=== PATIENT | male | born 1960 | race Caucasian/White ===

== ENCOUNTER 2019-09-23 17:27 | Inpatient (IN) | payer MEDICARE ==
[~2019-09-23] VITALS: Ht 175.3 cm; Wt 83.1 kg
[2019-09-23] MEDS ORDERED: LISINOPRIL20 MG PO (17:33)
[2019-09-23] MEDS ORDERED: ALDACTONE100 MG PO (17:34)
[2019-09-23] MEDS ORDERED: FLOMAX0.4 MG PO (17:34)
[2019-09-23] MEDS ORDERED: DILAUDID4 MG PO (17:34)
[2019-09-23] MEDS ORDERED: KLONOPIN1 MG PO (17:35)
[2019-09-23] MEDS ORDERED: LAMICTAL100 MG PO (17:35)
[2019-09-23] MEDS ORDERED: OXYBUTYNIN CHLOR5 M1 PO (17:35)
[2019-09-23 18:14] LABS: BASOPHILS 0.1 % (0-2); EOSINOPHILS 0 % (0-7); HEMATOCRIT 21.6 % (42.0-54.0); IMMATURE GRANULOCYTES 0.4 % (0-5); LYMPHOCYTES 14.8 % (15-50); MCH 23.9 pg (26.0-34.0); MCV 77.1 fL (80.0-100.0); MEAN PLATELET VOLUME 8.5 fL (7.4-10.4); MONOCYTES 11.2 % (2-11); NEUTROPHILS 73.5 % (40-80); PLATELET COUNT 452 10x3/uL (130-400); WBC 10.2 10x3/uL (4.8-10.8)
[2019-09-23 18:18] LABS: CALC OSMOLALITY 269 mosm/kg (275-300); CALCIUM 8.3 mg/dL (8.5-10.1); CARBON DIOXIDE 28.4 mmol/L (21.0-32.0); CHLORIDE - SERUM 96 mmol/L (98-107); CREATININE - SERUM 0.8 mg/dL (0.6-1.3); GLUCOSE 111 mg/dL (74-106); POTASSIUM - SERUM 4.5 mmol/L (3.5-5.1); PROTIME 13.1 SECONDS (11.6-15.0); SODIUM 131 mmol/L (136-145); UREA NITROGEN 30 mg/dL (7-18); eGFR NON AFRICAN AMERICAN > 90 mL/min (90-120)
[2019-09-23 18:24] LABS: ALBUMIN 2.8 g/dL (3.4-5.0); ALKALINE PHOSPHATASE 35 U/L (30-120); ALT (SGPT) 52 U/L (10-68); BILIRUBIN - TOTAL 0.18 mg/dL (0.2-1.3); PROTEIN - SERUM 6.5 g/dL (6.4-8.2)
[2019-09-23 18:26] LABS: HEMOGLOBIN 6.7 g/dL (13.5-17.5)
[2019-09-23 19:37] LABS: HEMATOCRIT 20.4 % (42.0-54.0)
[2019-09-23 19:38] LABS: HEMOGLOBIN 6.3 g/dL (13.5-17.5)
[2019-09-23 19:45] LABS: % SATURATION 3 % (15-55); IRON 11 ug/dl (35-150); TOTAL IRON BIND CAPACITY 337 ug/dl (260-445); UNSAT IRON BIND CAPACITY 326 ug/dl (150-375)
[2019-09-23 19:49] VITALS: BP 108/52
--- NOTE | 2019-09-23 20:14 | NUR ---
PT ARRIVED FROM ER VIA STREATCHER A&OX4 IN STABLE CONDITION.
[2019-09-23 20:38] LABS: CREATINE KINASE 926 UL (21-232); TROPONIN-I < 0.017 ng/mL (0.000-0.060)
[2019-09-23] MEDS ORDERED: KLONOPIN0.5 MG PO (20:50)
[2019-09-23] MEDS ORDERED: FERROUS SULFAT325 MG PO (20:54)
[2019-09-23 21:00] VITALS: BP 120/74
--- NOTE | 2019-09-23 21:09 | NUR ---
PAGED VOISE TO NOTIFY OF CONSULT
--- NOTE | 2019-09-23 21:37 | NUR ---
INSERTED DANIELS CATHETOR WITH NO ISSUE. PT TOLERATED WELL AND VOICE"I FEEL MUCH BETTER I REALLY HAD TO PEE". YELLOW URINE WAS OBSERVED IN THE TUBE. HUNG ON BED BELOW BLADDER.
--- NOTE | 2019-09-23 21:44 | NUR ---
CALLED BACK. NOTIFIED OF CONSULT OF PT AND INFORMED HIM OF PT CONDITION. HE GAVE T.O TO D/C ZOFRAN CONTINOUS AND HAVE ZOFRAN 4MG IV Q6H PRN FOR N/V. T.O READ BACK CORRECT. HE ALSO VERBALIZED TO KEEP PT NPO OVER NIGHT AND TO GET CONSENT TO HAVE AN UPPER EGD WITH TIVA IN THE MORNING. T.O READ BACK CORRECT. ALSO SAID TO NOTIFY IF VS CHANGE BUT THAT HE WOULD SEE THE PT IN THE MORNING.
--- NOTE | 2019-09-23 21:55 | NUR ---
TALKED WITH PT ASKED "CAN I GET MY KLONIPINE, I TAKE 0.5MG TWICE A DAY AND 1MG ONCE AT NIGHT BECASUE MY LEGS SHAKE REAL BAD AND HURT". GAVE T.O TO RESTART THIS HOME MED HE TAKES IT AT HOME. T.O KLONIPINE 0.5MG PO BID AND 1MG PO HS. T.O READ BACK CORRECT.
--- NOTE | 2019-09-23 21:58 | NUR ---
JUST STARTED SECOND UNIT OF BLOOD PER ORDER. PT VSS. PT VOICES NO NEEDS OR PAIN AT THIS TIME. VOICES"MY LEGS ARE FEELING BETTER". HE HAS A WARM BLANKET BC HE STATES HE IS COLD. TEMP IS 97.8F AXILLA. BED IS LOW,SIDE RAILSX2, CALL LIHT WITHIN REACH. WILL CONTINUE TO [facility]
[2019-09-23 22:00] VITALS: BP 100/67
[2019-09-23 23:00] VITALS: BP 123/76
--- NOTE | 2019-09-23 23:38 | NUR ---
SECOND UNIT OF BLOOD JUST FINSHED. PT IS RESTING WITH EYES CLOSED. VSS. TEMP IS 97.3F AXILLIA. BED IS LOW,SIDE RIALSX2,CALL LIGHT WITHIN REACH. WILL CONITNUE TO MONITOR
--- NOTE | 2019-09-23 23:55 | NUR ---
STARTED FIRST BAG OF FFP AT THIS TIME. PT IS RESTING WITH EYES CLOSED. VSS. NO NEEDS VOICED. BED IS LOW,SIDE RAILSX2,CALL LIGHT WITHIN REACH.WILL CONTINUE TO MONITOR
[2019-09-24] VITALS (24 sets, daily range): BP systolic 91–120; BP diastolic 52–68; Ht 175.3 cm; Wt 83.1 kg
[2019-09-24 01:03] LABS: BILIRUBIN NEGATIVE (NEGATIVE); GLUCOSE NEGATIVE (NEGATIVE); KETONE NEGATIVE (NEGATIVE); NITRITE NEGATIVE (NEGATIVE); UROBILINOGEN NORMAL (NORMAL)
--- NOTE | 2019-09-24 01:30 | NUR ---
GOT A CALL FROM LAB STATING SECOND BAG OF FFP IS READY.
--- NOTE | 2019-09-24 01:49 | NUR ---
STARTED FIRST BAG OF FFP PER ORDER. PT VITALS ARE STABLE. PT IS RESTING WITH EYES CLOSED. BED IS LOW,SIDE RAISLX2,CALL LIGHT WTIHIN REACH. WILL CONTINUE TO MONITOR
[2019-09-24 02:03] LABS: CKMB 13.3 U/L (0.0-3.6)
[2019-09-24 02:04] LABS: CREATINE KINASE 942 UL (21-232); TROPONIN-I < 0.017 ng/mL (0.000-0.060)
--- NOTE | 2019-09-24 03:57 | NUR ---
HANGING 3 FFP AT THIS TIME. PT IS RESTING IN BED WITH EYES CLOSED. VSS. WILL PERFORM RE-ASSESSMENT AND DOCUMENT. NO NEEDS WERE VOICED. BED IS LOW,SIDE RAILSX3,CALL LIGHT WTIHIN REACH. WILL CONTINUE TO MONITOR
--- NOTE | 2019-09-24 05:22 | NUR ---
LAST BAG OF FFP IS DONE. PT VITALS ARE STABLE. GAVE CHG BATH PER PROTOCOL FOR ICU. PT TOLERATED WELL. PERFORMED DANIELS CATHETOR CARE. AND PROVIDED ORAL CARE BECAUSE PT VOICES "MY MOUTH IS SO TRY". USING GLYCERIN SWABS. PT VOICED"THAT FEELS MUCH BETTER AFTER". BED IS LOW,SIDE RAILSX2,CALL LIGTH WITHIN REACH.WILL CONTINUE TO MOINTOR
--- NOTE | 2019-09-24 06:00 | NUR ---
PT IS AWAKE A&OX4. VSS. WENT OVER CONSENT FORMS FOR UPPER EGD C TIVA TODAY. PT VERBALIZED UNDERSTANDING AND SIGNS CONSENT FORMS. HE VOICES NO NEEDS OR C/O AT THIS TIME. HE POSITIONS HIS SELF INDEPENDENTLY. BED IS LOW,SIDE RAISLX2,CALL LIGHT WITHIN REACH. WILL CONTINUE TO MONITOR
[2019-09-24 06:52] LABS: BASOPHILS 0.1 % (0-2); EOSINOPHILS 0 % (0-7); HEMATOCRIT 22.4 % (42.0-54.0); IMMATURE GRANULOCYTES 0.4 % (0-5); LYMPHOCYTES 14.1 % (15-50); MCH 25.4 pg (26.0-34.0); MCHC 32.6 g/dL (31.0-37.0); MEAN PLATELET VOLUME 8.4 fL (7.4-10.4); MONOCYTES 9.9 % (2-11); NEUTROPHILS 75.5 % (40-80); RBC 2.87 10x6/uL (4.20-6.10); RDW 16.5 % (11.5-14.5); WBC 7.7 10x3/uL (4.8-10.8)
--- NOTE | 2019-09-24 07:00 | NUR ---
REPORT RECEIVED. ASSESSMENT COMPLETE PER FLOW SHEET. VSS. PT RESTING COMFORTABLY DENIES NEEDS WILL CONTINUE TO MONITOR
[2019-09-24 07:02] LABS: HEMOGLOBIN 7.3 g/dL (13.5-17.5); PLATELET COUNT 316 10x3/uL (130-400)
[2019-09-24 07:24] LABS: ALBUMIN 2.6 g/dL (3.4-5.0); ALKALINE PHOSPHATASE 36 U/L (30-120); ALT (SGPT) 45 U/L (10-68); BILIRUBIN - TOTAL 0.58 mg/dL (0.2-1.3); CALCIUM 7.9 mg/dL (8.5-10.1); CARBON DIOXIDE 27.7 mmol/L (21.0-32.0); CHLORIDE - SERUM 99 mmol/L (98-107); CREATININE - SERUM 0.8 mg/dL (0.6-1.3); GLUCOSE 94 mg/dL (74-106); MAGNESIUM - SERUM 2.1 mg/dL (1.8-2.4); POTASSIUM - SERUM 4.3 mmol/L (3.5-5.1); PROTEIN - SERUM 5.9 g/dL (6.4-8.2); SODIUM 134 mmol/L (136-145); eGFR NON AFRICAN AMERICAN > 90 mL/min (90-120)
[2019-09-24 07:26] LABS: CALC OSMOLALITY 269 mosm/kg (275-300); CREATINE KINASE 880 UL (21-232); TROPONIN-I < 0.017 ng/mL (0.000-0.060); UREA NITROGEN 17 mg/dL (7-18)
--- NOTE | 2019-09-24 09:20 | NUR ---
PT REPOSITIONED FOR COMOFRT. AT BEDSIDE. GIVEN UDPDATE. NO NEW CHANGES WILL CONTINUE TO MONITOR
--- NOTE | 2019-09-24 11:00 | NUR ---
REASSESSMENT COMPLETE PER FLOW SHEET. VSS. PT RESTING COMFORTABLY WILL CONTINUE TO MONITOR
[2019-09-24 11:11] LABS: HEMATOCRIT 22.5 % (42.0-54.0)
--- NOTE | 2019-09-24 13:24 | NUR ---
DR REDMAN AT BEDSIDE GIVEN UPDATE. EGD ADM.
--- NOTE | 2019-09-24 15:00 | NUR ---
REASSESSMENT COMPLETE PER FLOW SHEET. VSS PT RESTING COMFORTABLY WILL CONTINUE TO MONITOR
--- NOTE | 2019-09-24 17:00 | NUR ---
FAMILY AT BEDSIDE. GIVEN UPDATE. NO NEW CHANGES WILL CONTIUE TO MONITOR
--- NOTE | 2019-09-24 19:00 | NUR ---
BEDSIDE REPORT AND SHIFT ASSESSMENT COMPLETE, SEE FLOWSHEET. VSS, NO SIGNS OF ACUTE DISTRESS NOTED. PT DENIES ANY NEEDS AT THIS TIME. CALL LIGHT IN REACH, WILL MONITOR.
[2019-09-24 19:45] LABS: HEMATOCRIT 28.3 % (42.0-54.0); HEMOGLOBIN 8.9 g/dL (13.5-17.5)
--- NOTE | 2019-09-24 21:00 | NUR ---
PARAS MOY APN AT BEDSIDE. UPDATE GIVEN. PT C/O COUGH AND BACK PAIN, PRN PAIN MEDS ORDERED.
--- NOTE | 2019-09-24 23:00 | NUR ---
REASSESSMENT COMPLETE, SEE FLOWSHEET.
[2019-09-25] VITALS (16 sets, daily range): BP systolic 94–129; BP diastolic 56–75
--- NOTE | 2019-09-25 03:00 | NUR ---
REASSESSMENT COMPLETE, SEE FLOWSHEET.
[2019-09-25 05:11] LABS: BASOPHILS 0.1 % (0-2); EOSINOPHILS 0.1 % (0-7); HEMATOCRIT 28.6 % (42.0-54.0); HEMOGLOBIN 8.8 g/dL (13.5-17.5); IMMATURE GRANULOCYTES 0.6 % (0-5); LYMPHOCYTES 24.7 % (15-50); MCH 24.6 pg (26.0-34.0); MCHC 30.8 g/dL (31.0-37.0); MCV 79.9 fL (80.0-100.0); MEAN PLATELET VOLUME 8.7 fL (7.4-10.4); MONOCYTES 12.3 % (2-11); NEUTROPHILS 62.2 % (40-80); PLATELET COUNT 342 10x3/uL (130-400); RDW 16.8 % (11.5-14.5); WBC 8.1 10x3/uL (4.8-10.8)
[2019-09-25 05:22] LABS: RBC 3.58 10x6/uL (4.20-6.10)
--- NOTE | 2019-09-25 05:40 | NUR ---
PT PULLED UP IN BED FOR COMFORT. DENIES OTHER NEEDS AT THIS TIME.
[2019-09-25 05:41] LABS: ALBUMIN 2.4 g/dL (3.4-5.0); ALKALINE PHOSPHATASE 34 U/L (30-120); ALT (SGPT) 41 U/L (10-68); BILIRUBIN - TOTAL 0.31 mg/dL (0.2-1.3); CALCIUM 7.5 mg/dL (8.5-10.1); CHLORIDE - SERUM 100 mmol/L (98-107); CREATININE - SERUM 0.8 mg/dL (0.6-1.3); GLUCOSE 92 mg/dL (74-106); POTASSIUM - SERUM 3.9 mmol/L (3.5-5.1); PROTEIN - SERUM 5.7 g/dL (6.4-8.2); SODIUM 132 mmol/L (136-145); eGFR NON AFRICAN AMERICAN > 90 mL/min (90-120)
[2019-09-25 05:43] LABS: CALC OSMOLALITY 263 mosm/kg (275-300); UREA NITROGEN 10 mg/dL (7-18)
[2019-09-25 05:50] LABS: CARBON DIOXIDE 25.7 mmol/L (21.0-32.0)
--- NOTE | 2019-09-25 06:00 | NUR ---
PT STATES HE TAKES MIRALAX AND BENEFIBER DAILY AND WOULD LIKE TO START BACK REGIMEN. INFORMED HIM THAT I WOULD PASS ALONG TO AM RN.
--- NOTE | 2019-09-25 07:15 | NUR ---
REPORT RECEIVED. ASSESSMENT COMPLETE PER FLOW SHEET. VSS. TP RESTING COMFORTABLYWILL CONTINUE TO MONITOR
--- NOTE | 2019-09-25 11:00 | NUR ---
DOMINIK PORTER AT BEDSIDE STATED COULD TRANSFER TO FLOOR AT THIS TIME.
[2019-09-25 11:37] LABS: HEMATOCRIT 29.2 % (42.0-54.0); HEMOGLOBIN 9.1 g/dL (13.5-17.5)
--- NOTE | 2019-09-25 17:17 | NUR ---
PATIENT RECEIVED. IV THERAPY X2 IN RIGHT FOREARM. BOTH 20 G AND PATENT. DRESSING ON POSTERIOR IV IS BLOODY BUT DRESSING INTACT. A/O X 4. LUNGS SOUNDS CTA. S1, S2 PRESENT. RADIAL AND PEDAL PULSES PRESENT AND PALPABLE. BOWEL SOUNDS ACTIVE X 4. PATIENT STATES IT HAS BEEN A LITTLE WHILE SINCE HE HAS HAD A BOWEL MOVEMENT. 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 STATES HE WALKS WITH A CAN. CL IN REACH. SNACKS PROVIDED. TM
--- NOTE | 2019-09-25 19:26 | NUR ---
REFUSED SCD'S AT THIS TIME. IV TO RIGHT WRIST AND FA MELODY SL. fF/C IN PLACE AND PATEN. ALERT AND ORENTED ABLE TO VOICE NEEDS AND WANTS TO STAFF. WATER AND CALL LIGHT IN REACH, NO NEEDS OR DISTRESS.
--- NOTE | 2019-09-25 21:26 | MORECARE ---
CASE MANAGEMENT DISCHARGE SUMMARY PATIENT: ZE LEMUS UNIT: [id number] ADM DATE: 09/23/19 AGE: 59 : 60 SEX: M ROOM/BED: D.2203 AUTHOR: WENDY YOUNG PHYSICIAN: REFERRING PHYSICIAN: JENNIE ARIAS MD DATE OF SERVICE: 09/25/19 Discharge Plan Patient Name: ZE LEMUS [facility] [facility] 1960 Planned Disposition: Home Anticipated Discharge Date: Discharge Date: Expected LOS: Initial Reviewer: [email or web address] Initial Review Date: 09/23/2019 Generated: 09/25/19 10:25 pm DCPIA - Discharge Planning Initial Assessment Updated by [email or web address]: Glenny Schmidt on 09/25/19 9:24 pm * Is the patient Alert and Oriented? Yes * How many steps to enter\exit or inside your home? * PCP ANALI * Pharmacy [facility] * Preadmission Environment Home with Family * ADLs Independent * List name and contact numbers for known caregivers / representatives who currently or will assist patient after discharge: YENNIFER MENESES - SPOUSE - [phone] * Verbal permission to speak to the caregivers and representatives has been obtained from the patient. Yes * Community resources currently utilized None * Additional services required to return to the preadmission environment? No * Can the patient safely return to the preadmission environment? Yes * Has this patient been hospitalized within the prior 30 days at any hospital? No Patient Name: ZE LEMUS Page [id number] at 2126 All edits/amendments must be made on the electronic document DICTATION DATE: 09/25/192124 ASSISTANT PROFESSOR OF RELIGION: NORMAN 09/25/192124 RPT#: [id number] DC DATE: STATUS: ADM IN [facility] [address] [place] [address] END OF REPORT
--- NOTE | 2019-09-25 21:32 | MORECARE ---
CASE MANAGEMENT DISCHARGE SUMMARY PATIENT: ZE LEMUS UNIT: [id number] ADM DATE: 09/23/19 AGE: 59 : 60 SEX: M ROOM/BED: D.2203 AUTHOR: HANNAHDOC PHYSICIAN: REFERRING PHYSICIAN: JENNIE ARIAS MD DATE OF SERVICE: 09/25/19 Discharge Plan Patient Name: ZE LEMUS Facility: [facility]:[place] : 1960 Planned Disposition: Home Anticipated Discharge Date: Discharge Date: Expected LOS: Initial Reviewer: [email or web address] Initial Review Date: 09/23/2019 Generated: 09/25/19 10:32 pm Comments DCP- Discharge Planning Updated by [email or web address]: Glenny Schmidt on 09/25/19 8:[address] Patient Name: ZE LEMUS Admission Status: ER Accout number: [id number] Admission Date: 09-23-2019 : 1960 Admission Diagnosis: Attending: JENNIE ARIAS Current LOS: 2 Anticipated DC Date: Planned Disposition: Home Primary Insurance: [employer] CHOICE PPO MCR ADVANT Discharge Planning Comments: CM met with patient at bedside after explaining CM role and obtaining verbal consent. Patient lives at home with his where he is independent with his care and plans to return there upon discharge. Patient feels this would be a safe discharge. CM discussed availability / needs of home health and medical equipment. Patient denies any discharge needs at this time. Patient states he will have his family drive him home upon discharge. CM will continue to follow and assist as needed with discharge planning / needs. Music Researcher: Glenny Schmidt DCPIA - Discharge Planning Initial Assessment Updated by [email or web address]: Glenny Schmidt on 09/25/19 9:24 pm * Is the patient Alert and Oriented? Yes * How many steps to enter\exit or inside your home? * PCP ANALI * Pharmacy [facility] * Preadmission Environment Home with Family * ADLs Independent * List name and contact numbers for known caregivers / representatives who currently or will assist patient after discharge: YENNIFER MENESES - SPOUSE - [phone] * Verbal permission to speak to the caregivers and representatives has been obtained from the patient. Yes * Community resources currently utilized None * Additional services required to return to the preadmission environment? No * Can the patient safely return to the preadmission environment? Yes * Has this patient been hospitalized within the prior 30 days at any hospital? No Last DP export: 09/25/19 8:26 p Patient Name: ZE LEMUS Page [id number] at 2132 All edits/amendments must be made on the electronic document DICTATION DATE: 09/25/192131 EMBLEM FUSER TENDER: NORMAN 09/25/192131 RPT#: [id number] DC DATE: STATUS: ADM IN [facility] [address] [place] [address] END OF REPORT
[2019-09-26] VITALS: BP 106/61
[2019-09-26 04:00] VITALS: BP 116/63
[2019-09-26 05:25] LABS: BASOPHILS 0.1 % (0-2); EOSINOPHILS 0.5 % (0-7); HEMATOCRIT 31.3 % (42.0-54.0); HEMOGLOBIN 9.6 g/dL (13.5-17.5); IMMATURE GRANULOCYTES 0.5 % (0-5); LYMPHOCYTES 17.1 % (15-50); MCH 24.6 pg (26.0-34.0); MCHC 30.7 g/dL (31.0-37.0); MCV 80.3 fL (80.0-100.0); MEAN PLATELET VOLUME 8.9 fL (7.4-10.4); MONOCYTES 10.4 % (2-11); NEUTROPHILS 71.4 % (40-80); RDW 16.9 % (11.5-14.5); WBC 9.4 10x3/uL (4.8-10.8)
[2019-09-26 05:34] LABS: PLATELET COUNT 439 10x3/uL (130-400)
[2019-09-26 05:35] LABS: ALBUMIN 2.4 g/dL (3.4-5.0); ALKALINE PHOSPHATASE 39 U/L (30-120); ALT (SGPT) 36 U/L (10-68); BILIRUBIN - TOTAL 0.32 mg/dL (0.2-1.3); CALCIUM 8.1 mg/dL (8.5-10.1); CARBON DIOXIDE 24.8 mmol/L (21.0-32.0); CHLORIDE - SERUM 104 mmol/L (98-107); CREATININE - SERUM 0.7 mg/dL (0.6-1.3); GLUCOSE 98 mg/dL (74-106); MAGNESIUM - SERUM 2.1 mg/dL (1.8-2.4); POTASSIUM - SERUM 3.8 mmol/L (3.5-5.1); PROTEIN - SERUM 5.8 g/dL (6.4-8.2); SODIUM 136 mmol/L (136-145); eGFR NON AFRICAN AMERICAN > 90 mL/min (90-120)
[2019-09-26 05:43] LABS: CALC OSMOLALITY 269 mosm/kg (275-300); UREA NITROGEN 7 mg/dL (7-18)
--- NOTE | 2019-09-26 08:00 | NUR ---
AT THE BEDSIDE, HE IS WANTING TO GO HOME. HE HAS A DANIELS. WAITING FOR THE DOCTOR TO ROUND.
[2019-09-26 08:54] VITALS: BP 111/68
[2019-09-26 12:32] VITALS: BP 100/63
[2019-09-26] MEDS ORDERED: CARAFATE1 G PO (15:50)
[2019-09-26] MEDS ORDERED: PROTONIX40 MG PO (15:50)
--- NOTE | 2019-09-26 15:57 | MORECARE ---
CASE MANAGEMENT DISCHARGE SUMMARY PATIENT: ZE LEMUS UNIT: [id number] ADM DATE: 09/23/19 AGE: 59 : 60 SEX: M ROOM/BED: D.2203 AUTHOR: HANNAH,DOC PHYSICIAN: REFERRING PHYSICIAN: JENNIE ARIAS MD DATE OF SERVICE: 09/26/19 Discharge Plan Patient Name: ZE LEMUS Facility: [facility]:[place] : 1960 Planned Disposition: Home Anticipated Discharge Date: Discharge Date: Expected LOS: Initial Reviewer: [email or web address] Initial Review Date: 09/23/2019 Generated: 09/26/19 4:56 pm Comments DCP- Discharge Planning Updated by [email or web address]: Deyanira Lincoln on 09/26/19 2:[address] patient discharging home today, imm served and explained, denies any needs at this time. his is at bedside DCP- Discharge Planning Updated by [email or web address]: Glenny Schmidt on 09/25/19 8:[address] Patient Name: ZE LEMUS Admission Status: ER Accout number: [id number] Admission Date: 09-23-2019 : 1960 Admission Diagnosis: Attending: JENNIE ARIAS Current LOS: 2 Anticipated DC Date: Planned Disposition: Home Primary Insurance: [employer] CHOICE PPO MCR ADVANT Discharge Planning Comments: CM met with patient at bedside after explaining CM role and obtaining verbal consent. Patient lives at home with his where he is independent with his care and plans to return there upon discharge. Patient feels this would be a safe discharge. CM discussed availability / needs of home health and medical equipment. Patient denies any discharge needs at this time. Patient states he will have his family drive him home upon discharge. CM will continue to follow and assist as needed with discharge planning / needs. Taste Tester: Glenny Schmidt DCPIA - Discharge Planning Initial Assessment Updated by [email or web address]: Glenny Schmidt on 09/25/19 9:24 pm * Is the patient Alert and Oriented? Yes * How many steps to enter\exit or inside your home? * PCP ANALI * Pharmacy [facility] * Preadmission Environment Home with Family * ADLs Independent * List name and contact numbers for known caregivers / representatives who currently or will assist patient after discharge: YENNIFER MENESES - SPOUSE - [phone] * Verbal permission to speak to the caregivers and representatives has been obtained from the patient. Yes * Community resources currently utilized None * Additional services required to return to the preadmission environment? No * Can the patient safely return to the preadmission environment? Yes * Has this patient been hospitalized within the prior 30 days at any hospital? No Coverage Notice Reviewer: [email or web address] Deven Lincoln Notice Issued Date-Time: 09/26/2019 15:50 Notice Type: IM Discharge Notice Notice Delivered To: Patient Relationship to Patient: Gerontological Nurse Practitioner Name: Delivery Method: HAND - Hand Delivered Denise Days: Prior Verbal Notification: Recipient Understood Notice: Yes Recipient Signature: Yes Med Rec Note Co-signed by Attending: Coverage Notice Comment: Last DP export: 09/25/19 8:32 p Patient Name: ZE LEMUS Page 46503 at 1557 All edits/amendments must be made on the electronic document DICTATION DATE: 09/26/19 1556 HEALTH SERVICES RN: NORMAN 09/26/19 155 RPT#: [id number] DC DATE: STATUS: ADM IN [facility] [address] [place] [address] END OF REPORT
[2019-09-26 16:44] VITALS: BP 106/61
--- NOTE | 2019-09-26 19:14 | NUR ---
PAPERWORK GONE OVER WITH THE AND PATIENT. IV'S OUT X 2. LEFT VIA WHEELCHAIR. HE VOIDED AFTER THE DANIELS WAS REMOVED.
--- NOTE | 2019-09-27 16:30 | MORECARE ---
CASE MANAGEMENT DISCHARGE SUMMARY PATIENT: ZE LEMUS UNIT: [id number] ADM DATE: 09/23/19 AGE: 59 : 60 SEX: M ROOM/BED: D.2203 AUTHOR: HANNAH,DOC PHYSICIAN: REFERRING PHYSICIAN: JENNIE ARIAS MD DATE OF SERVICE: 09/27/19 Discharge Plan Patient Name: ZE LEMUS Facility: [facility]:[place] : 1960 Planned Disposition: Home Anticipated Discharge Date: Discharge Date: 09/26/2019 Expected LOS: Initial Reviewer: [id number] Initial Review Date: 09/23/2019 Generated: 09/27/19 5:30 pm DCP- Discharge Planning Updated by [id number]: Deyanira Lincoln on 09/26/19 2:[address] patient discharging home today, imm served and explained, denies any needs at this time. his is at bedside DCP- Discharge Planning Updated by [email or web address]: Glenny Schmidt on 09/25/19 8:[address] Patient Name: ZE LEMUS Admission Status: ER Accout number: [id number] Admission Date: 09-23-2019 : 1960 Admission Diagnosis: Attending: JENNIE RAIAS Current LOS: 2 Anticipated DC Date: Planned Disposition: Home Primary Insurance: [employer] CHOICE PPO MCR ADVANT Discharge Planning Comments: CM met with patient at bedside after explaining CM role and obtaining verbal consent. Patient lives at home with his where he is independent with his care and plans to return there upon discharge. Patient feels this would be a safe discharge. CM discussed availability / needs of home health and medical equipment. Patient denies any discharge needs at this time. Patient states he will have his family drive him home upon discharge. CM will continue to follow and assist as needed with discharge planning / needs. Animal Science Professor: Glenny Schmidt DCPIA - Discharge Planning Initial Assessment Updated by [email or web address]: Glenny Schmidt on 09/25/19 9:24 pm * Is the patient Alert and Oriented? Yes * How many steps to enter\exit or inside your home? * PCP ANALI * Pharmacy [facility] * Preadmission Environment Home with Family * ADLs Independent * List name and contact numbers for known caregivers / representatives who currently or will assist patient after discharge: YENNIFER MENESES - SPOUSE - [phone] * Verbal permission to speak to the caregivers and representatives has been obtained from the patient. Yes * Community resources currently utilized None * Additional services required to return to the preadmission environment? No * Can the patient safely return to the preadmission environment? Yes * Has this patient been hospitalized within the prior 30 days at any hospital? No Coverage Notice Reviewer: [id number] Deven Lincoln Notice Issued Date-Time: 09/26/2019 15:50 Notice Type: IM Discharge Notice Notice Delivered To: Patient Relationship to Patient: Coil Shaper Name: Delivery Method: HAND - Hand Delivered Denise Days: Prior Verbal Notification: Recipient Understood Notice: Yes Recipient Signature: Yes Med Rec Note Co-signed by Attending: Coverage Notice Comment: Last DP export: 09/26/19 2:56 p Patient Name: ZE LEMUS Page 96251 at 1630 All edits/amendments must be made on the electronic document DICTATION DATE: 09/27/19 1630 TRANSFORMER ASSEMBLY SUPERVISOR: NORMAN 09/27/19 1630 RPT#: [id number] DC DATE:09/26/19 STATUS: DIS IN [facility] [address] [place] [address] END OF REPORT
== END 2019-09-26 19:16 | disposition home or self-care (01) | DRG 381 ==
LOC: D.ER 17:27 → D.ICU 18:47 → D.MS 09-25 15:19
PROVIDERS: Family Medicine; ADMIT Internal Medicine Nephrology; ATTEND Internal Medicine Nephrology
PROC: 0DJ08ZZ Inspection of Upper Intestinal Tract, Via Natural or Artificial Opening Endoscopic (ICD-10-PCS; principal; 2019-09-23)
DX: K22.11 Ulcer of esophagus with bleeding (principal); D62 Acute posthemorrhagic anemia; K21.9 Gastro-esophageal reflux disease without esophagitis; M19.90 Unspecified osteoarthritis, unspecified site; N40.0 Benign prostatic hyperplasia without lower urinary tract symptoms; G89.29 Other chronic pain; I10 Essential (primary) hypertension